=== PATIENT | female | born 1945 | race Caucasian/White ===

== ENCOUNTER 2019-02-03 14:08 | Emergency (ER) | payer OTHER ==
[~2019-02-03] VITALS: Ht 149.9 cm; Wt 50.3 kg
[~2019-02-03 14:08] MED LIST: ATENPOW10; COUMADIN; HYDROCODONE; LANOXIN; PRAVACHOL; PRILOSEC; PRINIVIL; [UNRECOGNIZED DRUG - OTHER]
[2019-02-03 16:17] LABS: Basophils # (auto) 0 uL; Basophils % (auto) 0.2 % (0.0-2.0); Eosinophils # (auto) 0 uL; Eosinophils % (auto) 0.1 % (0.0-7.0); Hematocrit 46.7 % (36.0-46.0); Hemoglobin 16.1 g/dL (12.2-16.2); Lymphocytes % (auto) 7.8 % (10.0-50.0); Mean Corpuscular Hemoglobin 31.2 pg (28.0-32.0); Mean Corpuscular Hgb Conc. 34.5 g/dL (32.0-36.0); Mean Corpuscular Volume 90.6 fL (80.0-100.0); Monocytes # (auto) 0.9 uL; Monocytes % (auto) 7.3 % (0.0-12.0); Neutrophils % (auto) 84.6 % (37.0-80.0); Nucleated Red Blood Cells % 0.1 %; Platelet Count (auto) 105 10^3/uL (140-450); Red Blood Cells 5.15 10^6/uL (4.0-5.20); Red Cell Distribution Width 14.6 % (11.8-14.3)
[2019-02-03 16:26] LABS: Albumin 3.3 g/dL (3.4-5.0); Anion Gap 9 (5-15); Blood Urea Nitrogen 40 mg/dL (7-18); Calcium 9.7 mg/dL (8.5-10.1); Carbon Dioxide 25 mmol/L (21-32); Chloride 94 mmol/L (98-107); Glucose 180 mg/dL (74-106); Magnesium 2.6 mg/dL (1.6-2.6); Sodium 128 mmol/L (136-145)
[2019-02-03 16:33] LABS: Alanine Aminotransferase 38 U/L (13-56); Alkaline Phosphatase 75 U/L (45-117); Aspartate Aminotransferase 28 U/L (15-37); BUN/Creatinine Ratio 31.3; Bilirubin, Total 1.1 mg/dL (0.2-1.0); GFR African American 52 mL/min; GFR Non-African American 43 mL/min; Total Protein 7.3 g/dL (6.4-8.2)
[2019-02-03 17:31] LABS: Urine Bacteria FEW /hpf (None Seen); Urine Blood Negative /uL (Negative); Urine Hyaline Cast FEW /lpf (0 - 2); Urine Specific Gravity 1.007 (1.001-1.035); Urine WBC 6 /hpf (0 - 5)
[2019-02-03] MEDS ORDERED: SODIUM CHLORIDE 0.9% 1,000 ML IV ONE (19:30)
[2019-02-03 19:58] VITALS: BP 123/62
== END 2019-02-03 20:30 | disposition home or self-care (01) ==
LOC: EDBD 14:08 → EDUNIT# 14:08 → ER 14:15
DX: J18.9 Pneumonia, unspecified organism (principal); I11.0 Hypertensive heart disease with heart failure; I50.9 Heart failure, unspecified; E11.9 Type 2 diabetes mellitus without complications; Z95.1 Presence of aortocoronary bypass graft; Z88.8 Allergy status to other drugs, medicaments and biological substances; Z88.6 Allergy status to analgesic agent
CPT/HCPCS: 36415; 71045; 80053; 81001; 82962; 83735; 84484; 85025; 93005; 94761

== ENCOUNTER 2021-11-19 21:39 | Emergency (ER) | payer OTHER ==
[~2021-11-19] VITALS: Ht 162.6 cm; Wt 56.7 kg
[2021-11-19] MEDS ORDERED: SODIUM CHLORIDE 0.9% 500 ML IV ONE (22:15)
[2021-11-19 22:42] LABS: Basophils # (auto) 0 10 ^3/uL (0-0.2); Basophils % (auto) 0.9 % (0.0-2.0); Eosinophils # (auto) 0 10 ^3/uL (0-0.8); Hematocrit 34.6 % (36.0-46.0); Hemoglobin 11.3 g/dL (12.2-16.2); Lymphocytes # (auto) 0.3 10 ^3/uL (0.4-5.4); Lymphocytes % (auto) 5.4 % (10.0-50.0); Mean Corpuscular Hemoglobin 29.4 pg (28.0-32.0); Mean Corpuscular Hgb Conc. 32.6 g/dL (32.0-36.0); Mean Corpuscular Volume 90.2 fL (80.0-100.0); Monocytes # (auto) 0.7 10 ^3/uL (0-1.3); Monocytes % (auto) 12.5 % (0.0-12.0); Neutrophils # (auto) 4.5 10 ^3/uL (1.6-8.6); Neutrophils % (auto) 81.2 % (37.0-80.0); Nucleated Red Blood Cells % 0.1 %; Red Blood Cells 3.84 10^6/uL (4.0-5.20); Red Cell Distribution Width 17.9 % (11.8-14.3); White Blood Cell 5.6 10^3/uL (4.4-10.8)
[2021-11-19 23:02] LABS: Albumin 2.8 g/dL (3.4-5.0); BUN/Creatinine Ratio 25.4; Calcium 8.3 mg/dL (8.5-10.1); Magnesium 1.9 mg/dL (1.6-2.6); Potassium 4.1 mmol/L (3.5-5.1)
[2021-11-19 23:11] LABS: Urine Bacteria NONE SEEN /hpf (None Seen); Urine Blood Negative /uL (Negative); Urine Hyaline Cast MOD /lpf (0 - 2); Urine WBC <1 /hpf (0 - 5)
[2021-11-19 23:11] LABS: Bilirubin, Total 0.8 mg/dL (0.2-1.0); Total Protein 6.3 g/dL (6.4-8.2)
[2021-11-20 05:54] VITALS: BP 103/57
== END 2021-11-20 01:56 | disposition short-term general hospital (02) ==
LOC: ER 21:39 → EDBD 21:39 → ER 11-20 01:56
DX: R53.1 Weakness (principal); I48.0 Paroxysmal atrial fibrillation; N28.9 Disorder of kidney and ureter, unspecified; R79.89 Other specified abnormal findings of blood chemistry; I11.0 Hypertensive heart disease with heart failure; I50.9 Heart failure, unspecified; E11.9 Type 2 diabetes mellitus without complications; Z95.1 Presence of aortocoronary bypass graft; Z79.899 Other long term (current) drug therapy; Z88.8 Allergy status to other drugs, medicaments and biological substances; Z20.822 Contact with and (suspected) exposure to COVID-19
CPT/HCPCS: 36415; 71045; 80053; 81001; 82140; 83605; 83735; 83880; 84484; 85025; 87426; 93005; 96360; 99285; J7030

== ENCOUNTER 2022-04-29 14:51 | Inpatient (IN) | payer OTHER ==
[~2022-04-29] VITALS: Ht 162.6 cm; Wt 75.0 kg
[2022-04-29] MEDS ORDERED: SODIUM CHLORIDE 0.9% 1,000 ML IV ONE (15:00)
[2022-04-29 16:39] LABS: Albumin 2.2 g/dL (3.4-5.0); Calcium 7.7 mg/dL (8.5-10.1); Potassium 4.9 mmol/L (3.5-5.1)
[2022-04-29 16:48] LABS: BUN/Creatinine Ratio 22.3; Bilirubin, Total 4.2 mg/dL (0.2-1.0); Total Protein 6.3 g/dL (6.4-8.2)
[2022-04-29] MEDS ORDERED: SODIUM CHLORIDE 0.9% 500 ML IV ONE (18:00)
[2022-04-29 19:15] LABS: INR 1.84 (0.9-1.15)
[2022-04-29] MEDS ORDERED: ALBUTEROL SULF 2.5 MG/0.5ML(0.5%) NEB SOLN NEB ONE (19:15)
[2022-04-29] MEDS ORDERED: DexAMETHasone SOD PHOS 10MG/1ML VIAL INJ IV ONE (19:15)
[2022-04-29] MEDS ORDERED: IPRATROPIUM BROM 0.5 MG/2.5ML INH SOL NEB ONE (19:15)
[2022-04-29 22:03] LABS: Hematocrit 30.3 % (36.0-46.0)
[2022-04-29 22:06] LABS: Hemoglobin 9.4 g/dL (12.2-16.2); Mean Corpuscular Hemoglobin 24.6 pg (28.0-32.0); Mean Corpuscular Hgb Conc. 31.1 g/dL (32.0-36.0); Mean Corpuscular Volume 79.1 fL (80.0-100.0); Red Blood Cells 3.83 10^6/uL (4.0-5.20); White Blood Cell 15.7 10^3/uL (4.4-10.8)
[2022-04-29 22:08] LABS: Red Cell Distribution Width 20.4 % (11.8-14.3)
[2022-04-29 22:10] LABS: Basophils % (manual) 0 (0.0-2.0); Blast Cells 0; Eosinophils % (manual) 0 (0-7); Myelocytes % 0; Promyelocytes % 0; Reactive Lymphocytes 0
[2022-04-29 22:45] LABS: Band Neutrophils % (manual) 15; Lymphocytes % (manual) 4 (10.0-50.0); Metamyelocytes % 1; Monocytes % (manual) 5 (0-12)
[2022-04-29] MEDS ORDERED: cefTRIAXone 1GM/50ML D5W 50 ML IV ONE (22:45)
[2022-04-30] MEDS ORDERED: LACTATED RINGER'S 1,000 ML IV ONE (01:00)
[2022-04-30] MEDS ORDERED: DexAMETHasone SOD PHOS 10MG/1ML VIAL INJ IV ONE (01:00)
[2022-04-30] MEDS ORDERED: AZITHROMYCIN 500MG/ 250ML 250 ML IV ONE (01:00)
[2022-04-30] MEDS ORDERED: NOREPINEPHRINE 8 MG/250ML KIT 250 ML IV ONE ×2 (01:48→01:53)
[2022-04-30] MEDS ORDERED: ALBUTEROL SULF 2.5 MG/0.5ML(0.5%) NEB SOLN NEB ONE (02:00)
[2022-04-30] MEDS ORDERED: IPRATROPIUM BROM 0.5 MG/2.5ML INH SOL NEB ONE (02:00)
[2022-04-30] MEDS: NOREPINEPHRINE 8 MG/250ML KIT 250 ML IV SCH ×2 (02:10→13:31)
[2022-04-30] MEDS ORDERED: VASOPRESSIN 20 UNIT/ML ONE (03:12)
[2022-04-30] MEDS: VASOPRESSIN 50 UNITS in D5W 5% 247.5 ML IV SCH (03:25)
[2022-04-30 04:59] LABS: Urine Specific Gravity 1.017 (1.001-1.035)
[2022-04-30 05:00] LABS: Urine Blood Negative /uL (Negative)
[2022-04-30] MEDS ORDERED: ALBUMIN 25% 100 ML IV ONE (05:15)
[2022-04-30] MEDS ORDERED: DEXTROSE (50%) 50ML SYRG IV PRN (06:45)
[2022-04-30] MEDS ORDERED: VANCOMYCIN PER PHARMACY 0 MG IV SCH (06:45)
[2022-04-30] MEDS ORDERED: ONDANSETRON HCL 4 MG/2 ML VIAL IV PRN (06:45)
[2022-04-30] MEDS ORDERED: MORPHINE SULFATE INJ 2 MG/ml SYRG IV PRN (06:45)
[2022-04-30] MEDS ORDERED: ACETAMINOPHEN 650 MG RECT SUPP PR PRN (06:45)
[2022-04-30] MEDS ORDERED: NITROGLYCERIN 0.4 MG SL TAB SL PRN (06:45)
[2022-04-30] MEDS ORDERED: VANCOMYCIN 1GM/250ML 250 ML IV ONE (08:00)
[2022-04-30] MEDS ORDERED: FAMOTIDINE (10MG/ML) 2ML VL IV SCH (10:00)
[2022-04-30] MEDS: ACCU-CHEK COMFORT CURVE STRIP VI SCH ×2 (11:59→18:35)
[2022-04-30] MEDS ORDERED: AMIODARONE HCL 150 MG in D5W 5% 100 ML IV ONE (12:00)
[2022-04-30] MEDS ORDERED: DIGOXIN (250MCG/ML) 2 ML AMPULE IV ONE (12:00)
[2022-04-30] MEDS: InsuLIN REG 1unit/0.01ml Soln (100units/ml) SC SCH ×2 (12:00→18:43)
[2022-04-30] MEDS ORDERED: AMIODARONE 450mg/250ml AE 250 ML IV SCH (12:15)
[2022-04-30] MEDS ORDERED: ACETAMINOPHEN 325 MG TAB PO ONE (15:15)
[2022-04-30 15:24] LABS: Sodium Urine < 5 mmol/L (40-220)
[2022-04-30 15:27] LABS: Creatinine, Urine 129 mg/dL (30.0-125.0)
[2022-04-30] MEDS ORDERED: AMIODARONE HCL (50 MG/ ML) 3 ML VIAL IV ONE (16:04)
[2022-04-30] MEDS: SODIUM CHLORIDE 0.9% 1,000 ML IV SCH ×2 (16:35→23:25)
[2022-04-30 16:55] LABS: Hemoglobin 8.6 g/dL (12.2-16.2); Mean Corpuscular Volume 78.6 fL (80.0-100.0)
[2022-04-30 16:57] LABS: Mean Corpuscular Hemoglobin 24.2 pg (28.0-32.0); Mean Corpuscular Hgb Conc. 30.8 g/dL (32.0-36.0); Red Blood Cells 3.56 10^6/uL (4.0-5.20); Red Cell Distribution Width 20.9 % (11.8-14.3); White Blood Cell 16.5 10^3/uL (4.4-10.8)
[2022-04-30] MEDS: PIPERACILLIN-TAZOB 2.25GM 50 ML IV SCH ×2 (17:00→22:46)
[2022-04-30 17:12] LABS: Albumin 2.3 g/dL (3.4-5.0); Calcium 7.1 mg/dL (8.5-10.1); Potassium 5.4 mmol/L (3.5-5.1)
[2022-04-30 17:13] LABS: Lactic Acid w/Reflex 6.1 mmol/L (0.4-2.0)
[2022-04-30 17:14] LABS: BUN/Creatinine Ratio 20.7
[2022-04-30 17:16] LABS: Bilirubin, Total 4.4 mg/dL (0.2-1.0); Total Protein 5.5 g/dL (6.4-8.2)
[2022-04-30 18:14] LABS: Basophils % (manual) 0 (0.0-2.0); Blast Cells 0; Eosinophils % (manual) 0 (0-7); Metamyelocytes % 0; Myelocytes % 0; Promyelocytes % 0; Reactive Lymphocytes 0
[2022-04-30 18:16] LABS: Band Neutrophils % (manual) 7; Lymphocytes % (manual) 7 (10.0-50.0); Monocytes % (manual) 3 (0-12)
[2022-04-30] MEDS: PHENYLEPHRINE IV 250 ML IV SCH (19:35)
[2022-04-30] MEDS: AMIODARONE 450mg/250ml AE 250 ML IV SCH (22:30)
[2022-04-30 23:30] VITALS: BP 82/52
[2022-05-01] MEDS: InsuLIN REG 1unit/0.01ml Soln (100units/ml) SC SCH ×3 (00:43→12:00)
[2022-05-01] MEDS: ACCU-CHEK COMFORT CURVE STRIP VI SCH ×3 (00:43→12:00)
[2022-05-01 02:00] VITALS: BP 54/61
[2022-05-01] MEDS: VASOPRESSIN 50 UNITS in D5W 5% 247.5 ML IV SCH (03:15)
[2022-05-01] MEDS: PHENYLEPHRINE IV 250 ML IV SCH ×2 (03:20→07:29)
[2022-05-01] MEDS ORDERED: VASOPRESSIN 20 UNIT/ML ONE (03:26)
[2022-05-01] MEDS: PIPERACILLIN-TAZOB 2.25GM 50 ML IV SCH (06:35)
[2022-05-01 08:30] VITALS: BP 57/38
[2022-05-01 08:31] LABS: Hematocrit 29.8 % (36.0-46.0); Hemoglobin 8.7 g/dL (12.2-16.2); Mean Corpuscular Hemoglobin 24.6 pg (28.0-32.0); Mean Corpuscular Hgb Conc. 29.3 g/dL (32.0-36.0); Red Blood Cells 3.54 10^6/uL (4.0-5.20)
[2022-05-01 08:55] LABS: Albumin 2.3 g/dL (3.4-5.0); BUN/Creatinine Ratio 21.2; Bilirubin, Total 5.1 mg/dL (0.2-1.0); Calcium 6.4 mg/dL (8.5-10.1); Magnesium 2.8 mg/dL (1.6-2.6); Total Protein 5.6 g/dL (6.4-8.2)
[2022-05-01 08:58] LABS: Basophils % (manual) 0 (0.0-2.0); Blast Cells 0; Eosinophils % (manual) 0 (0-7); Metamyelocytes % 0; Myelocytes % 0; Promyelocytes % 0; Reactive Lymphocytes 0
[2022-05-01 09:14] LABS: Potassium 5.8 mmol/L (3.5-5.1)
[2022-05-01] MEDS: AMIODARONE 450mg/250ml AE 250 ML IV SCH (09:15)
[2022-05-01] MEDS ORDERED: DexAMETHasone SOD PHOS 10MG/1ML VIAL INJ IV SCH (10:00)
[2022-05-01] MEDS ORDERED: SODIUM BICARBONATE 50ML VIAL 100 ML in SOD CHL 0.45% 1,000 ML IV SCH (14:30)
[2022-05-01] MEDS ORDERED: DOPamine 1600MCG/ML D5W 250 ML IV SCH (14:30)
[2022-05-01 16:22] LABS: Band Neutrophils % (manual) 9; Lymphocytes % (manual) 4 (10.0-50.0); Monocytes % (manual) 7 (0-12)
== END 2022-05-01 10:14 | DRG 871 ==
LOC: EDBD 14:51 → ER 14:53 → OVERFLOW 04-30 06:34
PROVIDERS: ADMIT Nurse Practitioner Family; ATTEND Internal Medicine Geriatric Medicine
PROC: 5A09357 Assistance with Respiratory Ventilation, Less than 24 Consecutive Hours, Continuous Positive Airway Pressure (ICD-10-PCS; principal; 2022-04-30)
PROC: 06HN33Z Insertion of Infusion Device into Left Femoral Vein, Percutaneous Approach (ICD-10-PCS; 2022-04-30)
PROC: B54CZZA Ultrasonography of Left Lower Extremity Veins, Guidance (ICD-10-PCS; 2022-04-30)
DX: A41.9 Sepsis, unspecified organism (principal); E43 Unspecified severe protein-calorie malnutrition; U07.1 COVID-19; G92.8 Other toxic encephalopathy; J12.82 Pneumonia due to coronavirus disease 2019; J96.01 Acute respiratory failure with hypoxia; K85.90 Acute pancreatitis without necrosis or infection, unspecified; R65.21 Severe sepsis with septic shock; C22.9 Malignant neoplasm of liver, not specified as primary or secondary; D68.4 Acquired coagulation factor deficiency; E87.1 Hypo-osmolality and hyponatremia; I13.0 Hypertensive heart and chronic kidney disease with heart failure and stage 1 through stage 4 chronic kidney disease, or unspecified chronic kidney disease; J98.11 Atelectasis; N17.9 Acute kidney failure, unspecified; R18.8 Other ascites; J44.0 Chronic obstructive pulmonary disease with (acute) lower respiratory infection; I48.20 Chronic atrial fibrillation, unspecified; Z66 Do not resuscitate; Z51.5 Encounter for palliative care; E11.65 Type 2 diabetes mellitus with hyperglycemia; D64.9 Anemia, unspecified; D69.6 Thrombocytopenia, unspecified; E11.22 Type 2 diabetes mellitus with diabetic chronic kidney disease; I25.10 Atherosclerotic heart disease of native coronary artery without angina pectoris; I50.9 Heart failure, unspecified; K74.60 Unspecified cirrhosis of liver; N18.9 Chronic kidney disease, unspecified; Z95.1 Presence of aortocoronary bypass graft; Z68.28 Body mass index [BMI] 28.0-28.9, adult; Z85.05 Personal history of malignant neoplasm of liver; Z88.6 Allergy status to analgesic agent; Z95.2 Presence of prosthetic heart valve; Z90.49 Acquired absence of other specified parts of digestive tract
CPT/HCPCS: 36415; 71045; 74176; 80053; 80202; 81001; 82140; 82570; 82962; 83036; 83605; 83690; 83735; 83880; 84156; 84300; 84484; 85007; 85027; 85610; 87426; 93005; 93306; 94640; 94660; 96361; 96365; 96367; 96375; 99291; 99292; G0378; J0696; J1100; J1815; J2543; J3490; J7060; P9047